=== PATIENT | male | born 1995 | race Two or more races ===

== ENCOUNTER 2024-11-21 12:23 | Emergency (ER) | payer OTHER ==
[~2024-11-21] VITALS: Ht 177.8 cm; Wt 90.7 kg
[2024-11-21 12:38] VITALS: BP 112/75; O2SAT 98
[2024-11-21] MEDS ORDERED: CEFTRIAXONE SODIUM 2,000 MG VIAL IV STA (13:02)
[2024-11-21] MEDS ORDERED: CEFTRIAXONE SODIUM 2,000 MG VIAL ONE (13:07)
[2024-11-21 13:32] LABS: BASO % 0.2 % (0.1-1.2); EOS # 0.11 (0.04-0.54); EOS % 1.1 % (0.7-7.0); LYMPH # 1.43 (1.18-3.74); LYMPH % 14.0 % (19.3-53.1); MEAN PLATELET VOLUME 10.30 fl (9.4-12.4); MONO # 0.64 (0.24-0.82); MONO % 6.3 % (4.7-12.5); NEUT # 7.95 (1.56-6.13); NEUT % 78.1 % (34.0-71.1); RED CELL DISTRIBUTION WIDTH 13.4 % (11.6-14.4)
[2024-11-21 13:36] LABS: ERYTHROCYTE SEDIMENTATION RATE < 1 mm/hr (0-15)
== END 2024-11-21 14:29 | disposition home or self-care (01) ==
LOC: ER 12:23
PROVIDERS: General Practice
DX: L03.113 Cellulitis of right upper limb (principal)

== ENCOUNTER 2025-03-31 01:21 | Emergency (ER) | payer OTHER ==
[~2025-03-31] VITALS: Ht 177.8 cm; Wt 90.7 kg
[2025-03-31] MEDS ORDERED: DEXAMETHASONE SODIUM PHOSP/PF 10 MG/ML VIAL IJ STA (01:47)
[2025-03-31] MEDS ORDERED: KETOROLAC TROMETHAMINE 60 MG VIAL IM STA (01:47)
[2025-03-31] MEDS ORDERED: ORPHENADRINE CITRATE 30 MG/ML AMPUL IM STA (01:47)
[2025-03-31] MEDS ORDERED: KETOROLAC TROMETHAMINE 60 MG VIAL IM ONE (01:52)
[2025-03-31] MEDS ORDERED: ORPHENADRINE CITRATE 30 MG/ML AMPUL ONE (01:53)
[2025-03-31] MEDS ORDERED: DEXAMETHASONE SODIUM PHOSPHATE 4 MG/ML VIAL ONE (01:53)
[2025-03-31] MEDS ORDERED: MORPHINE SULFATE 4 MG/ML CARTRIDGE IV SCH (06:30)
[2025-03-31] MEDS ORDERED: TRAMADOL HCL50 MG PO (09:35)
== END 2025-03-31 13:35 | disposition home or self-care (01) ==
LOC: ER 01:21
DX: S82.831A Other fracture of upper and lower end of right fibula, initial encounter for closed fracture (principal); W05.1XXA Fall from non-moving nonmotorized scooter, initial encounter; Y93.89 Activity, other specified; Y92.89 Other specified places as the place of occurrence of the external cause; Y99.9 Unspecified external cause status